=== PATIENT | female | born 1980 | race Caucasian/White ===

== ENCOUNTER → 2017-10-12 17:48 | Outpatient (CLI) | payer BC, SELFPAY | PROVIDERS: Visit Provider Obstetrics & Gynecology | DX: O09.90 Supervision of high risk pregnancy, unspecified, unspecified trimester (principal); O09.529 Supervision of elderly multigravida, unspecified trimester; Z3A.00 Weeks of gestation of pregnancy not specified | CPT/HCPCS: 87086; 87088 ==

== ENCOUNTER → 2017-10-25 16:11 | Outpatient (CLI) | payer BC, SELFPAY ==
[2017-10-25 17:29] LABS: Absolute Lymphocyte Count 3.09 X10^3/ul (0.83-4.51); Absolute Neutrophil Count 7.9 X10^3/uL (2.0-7.7); Basophil# 0.01 X10^3/uL; Basophil% 0.1 % (0-1); Eosinophil# 0.11 X10^3/uL; Eosinophils% 0.9 % (0-5); Hematocrit 37.7 % (37-47); Hemoglobin 12.5 g/dl (12.0-15.0); Lymphocyte # 3.09 X10^3/ul (4.0); Lymphocyte % 26.6 % (19-41); Mean Corp Hgb Conc 33.2 g/gl (32-36); Mean Corpuscular Hgb 28.8 pg (27.0-32.0); Mean Corpuscular Volume 86.9 fL (81-99); Monocyte# 0.47 X10^3/uL; Neutrophil # 7.91 X10^3/uL (2.7-7.7); Neutrophil % 68.2 % (47-70); Platelet Count 276 K/mm3 (150-450); RBC Distribution Width CV 12.8 % (11.6-14.6); Red Blood Count 4.34 M/mm3 (4.2-5.4); White Blood Count 11.6 K/mm3 (4.4-11.0)
[2017-10-25 17:33] LABS: POSITIVE COUNT NO; POSITIVE DIFFERENTIAL NO; POSITIVE MORPHOLOGY NO
[2017-10-26 04:36] LABS: Rapid Plasmin Reagin (RPR) NONREACTIVE (NONREACTIVE)
[2017-10-26 12:23] LABS: HIV - WCH Non-Reactive (Nonreactive); Rubella IgG 93.6 IU/mL
[2017-10-27 09:25] LABS: HEPATITIS B SURFACE AG Negative (Negative); HSV 1 IgG < 0.91 index (0.00-0.90); HSV 2 IgG 7.24 index (0.00-0.90)
[2017-10-30 08:54] LABS: Anti-Cardiolipin Ab, IgA, Qn < 9 APL U/mL (0-11); Anti-Cardiolipin Ab, IgG, Qn < 9 GPL U/mL (0-14); Anti-Cardiolipin Ab, IgM, Qn 17 MPL U/mL (0-12)
== END ==
PROVIDERS: Visit Provider Obstetrics & Gynecology
DX: O09.90 Supervision of high risk pregnancy, unspecified, unspecified trimester (principal); Z3A.00 Weeks of gestation of pregnancy not specified
CPT/HCPCS: 36415; 85025; 86147; 86592; 86695; 86696; 86703; 86762; 86850; 86900; 87340; 87491; 87591

== ENCOUNTER → 2017-10-25 18:02 | Outpatient (CLI) | payer BC, SELFPAY ==
[2017-10-25 20:59] LABS: Chlamydia Trachomatis by PCR Negative (Negative); Neisserai gonorrhoeae by PCR Negative (Negative); Probe Check PASS; Sample Adequacy Control PASS; Specimen Processing Control PASS
== END ==
PROVIDERS: Visit Provider Obstetrics & Gynecology
DX: O09.90 Supervision of high risk pregnancy, unspecified, unspecified trimester (principal); Z3A.00 Weeks of gestation of pregnancy not specified
CPT/HCPCS: 87491; 87591

== ENCOUNTER → 2017-11-19 10:05 | Outpatient (CLI) | payer BC, SELFPAY ==
[2017-11-21 11:35] LABS: Anti-Cardiolipin Ab, IgA, Qn < 9 APL U/mL (0-11); Anti-Cardiolipin Ab, IgG, Qn < 9 GPL U/mL (0-14); Anti-Cardiolipin Ab, IgM, Qn 17 MPL U/mL (0-12)
== END ==
DX: Z86.718 Personal history of other venous thrombosis and embolism (principal)
CPT/HCPCS: 86147

== ENCOUNTER → 2017-11-26 09:58 | Outpatient (CLI) | payer BC, SELFPAY | PROVIDERS: Visit Provider Obstetrics & Gynecology | DX: Z36.9 Encounter for antenatal screening, unspecified (principal) ==

== ENCOUNTER → 2018-02-04 11:51 | Outpatient (CLI) | payer BC, SELFPAY ==
[2018-02-04 12:55] LABS: ROM Internal Control Test YES-OK TO RESULT pt. (Internal QC); ROM Patient Test Negative (Negative)
== END ==
PROVIDERS: Referring Provider Nurse Practitioner Women's Health; Visit Provider Nurse Practitioner Women's Health
DX: N89.8 Other specified noninflammatory disorders of vagina (principal)
CPT/HCPCS: 84112

== ENCOUNTER → 2018-02-19 10:51 | Outpatient (CLI) | payer BC, SELFPAY ==
[2018-02-19 10:03] VITALS: BMI 29.2
[2018-02-19 11:26] LABS: Absolute Lymphocyte Count 2.01 X10^3/ul (0.83-4.51); Absolute Neutrophil Count 7.3 X10^3/uL (2.0-7.7); Basophil# 0.02 X10^3/uL; Basophil% 0.2 % (0-1); Eosinophil# 0.07 X10^3/uL; Eosinophils% 0.7 % (0-5); Hematocrit 32.7 % (37-47); Hemoglobin 10.8 g/dl (12.0-15.0); Lymphocyte # 2.01 X10^3/ul (4.0); Lymphocyte % 20.3 % (19-41); Mean Corpuscular Hgb 29.7 pg (27.0-32.0); Mean Corpuscular Volume 89.8 fL (81-99); Mean Platelet Vol. 10.2 fl (6.2-12.0); Monocyte# 0.45 X10^3/uL; Monocyte% 4.6 % (0-10); Neutrophil # 7.28 X10^3/uL (2.7-7.7); Neutrophil % 73.6 % (47-70); Platelet Count 226 K/mm3 (150-450); RBC Distribution Width CV 13.2 % (11.6-14.6); RBC Distribution Width SD 42.3 fl (35.1-43.9); Red Blood Count 3.64 M/mm3 (4.2-5.4); White Blood Count 9.9 K/mm3 (4.4-11.0)
[2018-02-19 11:27] LABS: POSITIVE COUNT NO; POSITIVE DIFFERENTIAL NO; POSITIVE MORPHOLOGY NO
[2018-02-19 11:54] LABS: Glucose Challenge Gest 1H 50g 126 mg/dL (70-140)
== END ==
LOC: LAB 10:54
PROVIDERS: Referring Provider Obstetrics & Gynecology; Visit Provider Obstetrics & Gynecology
DX: O09.90 Supervision of high risk pregnancy, unspecified, unspecified trimester (principal); Z3A.00 Weeks of gestation of pregnancy not specified
CPT/HCPCS: 36415; 82950; 85025; 86850; 86900

== ENCOUNTER 2018-03-31 17:00 | Outpatient (CLI) | payer BC, SELFPAY ==
[2018-03-28 15:28] VITALS: BMI 29.2
[2018-03-31 17:11] VITALS: BMI 30.2
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
== END 2018-03-31 18:00 | disposition home or self-care (01) ==
LOC: WPOUT 17:06 → WP 17:07
PROVIDERS: Visit Provider Obstetrics & Gynecology
DX: O46.90 Antepartum hemorrhage, unspecified, unspecified trimester (principal); Z3A.00 Weeks of gestation of pregnancy not specified; Z86.718 Personal history of other venous thrombosis and embolism
CPT/HCPCS: 59025; 59050; 99218; G0378

== ENCOUNTER → 2018-04-05 10:43 | Outpatient (CLI) | payer BC, SELFPAY ==
[2018-04-05 10:14] VITALS: BMI 30.2
[2018-04-05 11:08] LABS: Absolute Lymphocyte Count 1.88 X10^3/ul (0.83-4.51); Absolute Neutrophil Count 8.2 X10^3/uL (2.0-7.7); Basophil# 0.01 X10^3/uL; Basophil% 0.1 % (0-1); Eosinophil# 0.12 X10^3/uL; Eosinophils% 1.1 % (0-5); Hematocrit 33.5 % (37-47); Hemoglobin 11.1 g/dl (12.0-15.0); Lymphocyte # 1.88 X10^3/ul (4.0); Lymphocyte % 17.1 % (19-41); Mean Corp Hgb Conc 33.1 g/gl (32-36); Mean Corpuscular Hgb 29.8 pg (27.0-32.0); Mean Corpuscular Volume 89.8 fL (81-99); Monocyte# 0.68 X10^3/uL; Monocyte% 6.2 % (0-10); Neutrophil # 8.19 X10^3/uL (2.7-7.7); Neutrophil % 74.7 % (47-70); POSITIVE COUNT NO; POSITIVE DIFFERENTIAL NO; POSITIVE MORPHOLOGY NO; Platelet Count 213 K/mm3 (150-450); RBC Distribution Width CV 14.1 % (11.6-14.6); RBC Distribution Width SD 45.1 fl (35.1-43.9); Red Blood Count 3.73 M/mm3 (4.2-5.4)
[2018-04-05 11:17] LABS: Fibrinogen 564 mg/dl (203-444)
== END ==
LOC: LAB 10:46
PROVIDERS: Referring Provider Obstetrics & Gynecology; Visit Provider Obstetrics & Gynecology
DX: N93.9 Abnormal uterine and vaginal bleeding, unspecified (principal)
CPT/HCPCS: 36415; 85025; 85384

== ENCOUNTER → 2018-04-17 15:00 | Outpatient (CLI) | payer BC, SELFPAY ==
[2018-04-17 10:07] VITALS: BMI 30.2
--- OUTSIDE RECORDS SUMMARY | 2018-06-22 14:24 | XMS RPT_ITS ---
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 with history of infertility, antepart*INVALID FOR* More... Family history of cystic fibrosis [Z83.49] INVALID FOR* More... History of depression [Z86.59] INVALID FOR* More... Obesity in [O99.210] INVALID FOR* More... Exposure to genital herpes [Z20.2] INVALID FOR* More... History of DVT (deep vein thrombosis) [Z86.718] INVALID FOR* More... Other instructions from your clinician: SEQUENTIAL SCREENINGS The [facility] offers sequential screenings for women who are interested in screenings for chromosomal abnormalities and certain defects during a . The sequential screen combines ultrasound and blood tests to determine the risk of chromosomal abnormalities, including Down's Syndrome (Trisomy 21) and Trisomy 18, as well as open neural tube defects including spina bifida. Ultrasound examination is performed between 11 weeks and 13 weeks gestational age. Blood tests are drawn after the ultrasound and again later in the between 15 and 21 weeks gestational age. Please let your physician know if you are interested in this testing. It will require an appointment with our special equipment technician. This is not an ultrasound performed by a physician in our office during a routine visit. SIGNS AND SYMPTOMS OF LABOR 1. Contractions every 10 minutes or more often 2. Clear, pink, or brownish fluid (water) leaking from vagina 3. Feeling that baby is pushing down, pressure 4. Low, dull backache 5. Cramps that feel like a period 6. Cramps with or without diarrhea If you notice any of the above symptoms, contact our office at [phone] and ask to speak with a nurse. After hours, you can call doctors registry at [phone] OR call [facility] at [phone] and ask to have the doctor clinical education coordinator paged. If you consider this an emergency, dial 9-1-1 or go to your nearest emergency department. Cord-Blood Banking Up until recently, the umbilical cord--along with the blood that remained in it after a baby was born and the cord cut--was simply discarded by the hospital. Then, in the late , researchers discovered that cord blood possessed unusual properties that made it useful in the treatment of patients with some cancers and other illnesses. While the actual process of collecting cord blood is straightforward, many parents are not even aware that this option now exists, much less familiar with all the issues involved. The case for saving your baby's cord blood The blood running back and forth between your baby and the placenta is full of immature cells called stem cells. Unlike embryonic stem cells, which have the ability to develop into any type of body cell, cord-blood stem cells already are locked into a certain, vital function: making all the different components of the blood, such as platelets, white blood cells, and red blood cells-serving, in effect, like bone marrow. When transfused into a patient whose own blood cells have faulty genetic coding or have been destroyed by chemotherapy or other cancer treatments, the cord-blood cells can implant themselves in the bone marrow and generate legions of new, healthy cells. These days, cord-blood transplants most commonly are used in cancer patients when a donor can't be found for a bone-marrow transplant. The treatment is particularly effective in young patients- the [facility] Cord Blood Bank reports a 70 percent success rate in children, but only 20 to 40 percent in adults. Researchers envision improving those odds and see many future applications as well, such as curing sickle cell disease and other blood-related genetic illnesses. So there is a possibility that your child, or someone else, may need these super-healthy and versatile cells one day. The drawbacks Aside from not knowing about this medical option, the main reason most people do not save their baby's stem cells is cost. In a private blood bank, the initial costs run from $275 to $1,500. Most also charge a yearly storage fee of $50 to $95. The advantage of using a private bank is that your sample is saved for only you to use. An alternative to private banking Public cord-blood monson are an alternative. These cost no money to use, but your sample is not specifically saved for you. Another person with a more immediate need may use it. If the time should come that you need stem cells, yours may still be available, or you may use donations from other people without charge. You also can direct your sample to go to a relative with an immediate need if the blood type matches. Anyone else needing to use stem cells from a public bank who has not been a donor must pay for it, sometimes tens of thousands of dollars. Will my family benefit from saving stem cells? Right now, situations in which stem cells would be helpful are quite rare. As mentioned earlier, stem-cell transplants are most commonly used for rare genetic conditions and for some types of cancer, including leukemia and lymphoma. And even with these present uses, many questions remain. In cancer treatment, for example, some researchers are concerned about the wisdom of transplanting back into the child the same cells that already showed a propensity to become malignant. Doctors also aren't sure if the number of cells taken at the time of would be enough to treat a full-grown 16-year-old. It is also not completely clear how active the cells would be after years of being stored. The treatment is so new and rare, we just don't have the data yet to resolve these important issues. What do the experts say? The [place] [employer] encourages philanthropic blood banking in public monson, but only for families with a current or potential need. Blood-bank proponents encourage any kind of banking, pointing out that research is getting closer and closer to many diverse, live-saving applications. How do I decide? Each family must weigh the pros and cons for themselves. Some families say that any cost is worth their peace of mind. Others say that in the face of uncertainty about the effectiveness of the treatment, they will use their resources elsewhere. Some choose the middle ground of donating publicly, knowing that their sample might benefit another family, if not themselves. For more information, ask your doctor or nurse, and be sure to check out our article on the technical aspects of cord-blood banking. Technical Aspects of Cord-Blood Banking If you are interested in storing your baby's umbilical- cord blood because of its possible use in emerging medical treatments, you must make arrangements with a blood bank before your child is born. The collection procedure is quite simple: After delivery of the baby, the umbilical cord is clamped and cut in the usual way. The blood that remains in the umbilical-cord vessels is then collected in sterile containers. The blood may be removed from the cord with a large needle or allowed to flow freely, depending on the company's collection system. The containers may look like large test tubes or like the plastic bags used in a blood bank. It does not cause the mother or the baby any pain to collect the blood, and no blood is taken that the baby needs at the moment. The nurse, laborer stores, or physician will then label the samples, check them over with you, and package them for a special pickup arranged with a commercial carrier. When the blood arrives at the blood- bank facility, it is processed and the parents are notified. It is then kept in an advanced storage system for years. How do I know that my sample is safe? Power outages and bankruptcies potentially could threaten any organization, but so far none have been reported. It is to be hoped that the scientists in these monson would arrange for safe transfer to another facility if the need arose. YOU MUST MAKE ARRANGEMENTS AHEAD OF TIME! Public cord-blood monson--DONATION: [employer] [phone] [facility] Placental Blood Program, [facility] Umbilical Cord Blood Bank, Private cord-blood monson--SAVING FOR YOUR OWN USE: [employer], (I think this is the least expensive) [employer] [phone] [employer], (943) [employer] [place] Cord Blood [facility], [phone] 700-CORD Cells, [phone] [place] [facility], Cord Blood Registry, (905) CORDBLSoutheast Health Medical Centerco, An Internet search may provide you with additional listings. Disposition: Return in about 4 weeks (around 10/01/2017) for New OB with Dr Duarte. Follow-up and Disposition History Recorded Encounter Status:Closed by MELISSA FARIAS RN on 09/06/17 ALLERGIES ALLERGIES DATE TYPE / NAME / CODE REACTION SEVERITY SOURCE CODE 04/24/2018 Drug Penicillins/[id number] Unknown Unknown Josh Allergy/41 76(RXNORM) [facility] [id number]([facility]) Repository 04/24/2018 Drug cephalexin/[id number] Unknown Unknown Josh Allergy/41 6(RXNORM) [facility] 9085846( Hospital OMED CT) Repository 11/19/2017 Drug CEPHALOSPORINS [facility]195 [facility] [address](SNOM Repository ED CT) 11/19/2017 Drug PENICILLINS Had as a child [facility] Class/4195 and was told Hospital [address]47(SNOM to not take Repository ED CT) per her mother 06/19/2002 DRUG CEPHALEXIN SWELLING [facility] INGREDI/[address] [place] 7411176(SN Repository OMED CT) 06/19/2002 Drug PENICILLINS SWELLING [facility] Class/4195 [address] [place] [address](SNOM Repository ED CT) ENCOUNTERS ENCOUNTERS ADMIT/DISCHARGE ACCOUNT ADMITTING ENCOUNTER LOCATION SOURCE NUMBER CLASS 04/25/2018 [id number] Ambulatory Building:[facility] Repository 04/24/2018/04/24/19 [id number] Ambulatory BMSBuilding:Macy Moreno [facility] Repository 04/18/2018 [id number] Ambulatory Building:[facility] Repository 04/17/2018 [id number] Ambulatory [facility] ing:LABSPEC Repository 04/17/2018/04/17/19 [id number] Ambulatory BMSBuilding:Macy Moreno [facility] Repository 04/12/2018/04/12/19 [id number] Ambulatory BMSBuilding:Macy Moreno 19 [facility] Repository 04/11/2018/04/11/19 [id number] Ambulatory Building:[address] Repository 04/05/2018 [id number] Ambulatory [facility] ing:LAB Repository 04/05/2018/04/05/19 [id number] Ambulatory BMSBuilding:Macy Moreno [facility] Repository 04/04/2018 [id number] Ambulatory Building:[facility] Repository 04/01/2018 [id number] Ambulatory BMSBuilding:Macy Moreno MS.CF.[facility] Repository 03/31/2018/03/31/20 [id number] Ambulatory [address] ing:WPOUTRoom Repository : WP013 03/28/2018/03/28/20 [id number] Ambulatory BMSBuilding:B [place] [facility] Repository 03/28/2018 [id number] Ambulatory Building:[facility] Repository 03/21/2018 [id number] Ambulatory Building:[facility] Repository 03/19/2018/03/19/20 [id number] Ambulatory BMSBuilding:B Josh [facility] Repository 03/05/2018/03/05/20 [id number] Ambulatory BMSBuilding:B Josh [facility] Repository 02/19/2018 [id number] [facility]:LAB Repository 02/19/2018/02/20/20 [id number] Ambulatory BMSBuilding:B Josh [facility] Repository 02/04/2018 [id number] Ambulatory [facility] ing:LABSPEC Repository 02/04/2018/02/05/20 [id number] Ambulatory BMSBuilding:B Josh [facility] Repository 01/22/2018/01/23/20 [id number] Ambulatory BMSBuilding:B Josh [facility] Repository 01/07/2018 [id number] Ambulatory Building:[facility] Repository 12/25/2017/12/26/19 [id number] Ambulatory BMSBuilding:B Josh 18 [facility] Repository 12/13/2017/12/14/19 [id number] Ambulatory Building:[address] Repository 11/26/2017 [id number] [facility]:LAB Repository 11/26/2017/11/27/19 [id number] Ambulatory BMSBuilding:B Josh [facility] Repository 11/19/2017 [id number] [facility] ing:LAB Repository 11/19/2017/11/20/19 [id number] Ambulatory Building:[address] Repository 10/25/2017 [id number] Ambulatory [facility] ing:LABSPEC Repository 10/25/2017 [id number] Ambulatory [facility] ing:LAB Repository 10/25/2017/10/26/19 [id number] Ambulatory BMSBuilding:B [place] [facility] Repository 10/12/2017 [id number] Ambulatory [facility] ing:LABSPEC Repository 10/12/2017/10/13/19 [id number] Ambulatory BMSBuilding:B [place] 18 [facility] Repository 09/24/2017/09/25/19 [id number] Ambulatory BMSBuilding:B Josh [facility] Repository 09/19/2017/09/20/19 [id number] Ambulatory [address] Repository 09/17/2017/09/18/19 [id number] Ambulatory [address] Repository 09/17/2017/09/19/19 [id number] Ambulatory [address] Repository 09/08/2017/09/09/19 [id number] Ambulatory [address] Repository 09/06/2017 [id number] Ambulatory [facility] Repository 09/06/2017/09/12/19 [id number] Ambulatory [address] Repository PAYERS PAYERS ENCOUNTER GUARANTOR PAYER SUBSCRIBER SOURCE 04/25/2018 SUMMER YATESDOB: Primary JOHNNY Villegas [id number] Insurance:ANTHEMPolic SINESDOB: [facility] y Number: [id number] [place], [place] [id number] [place] Repository 77062Ovf: (330) Date: [place], [place] [phone] () [phone] 04/24/2018 SUMMER F Primary YESSENIA Morales SINESDOB: [place] [id number] Insurance:ANTHEMPolic [id number] y Number: [place], [place] [id number] Repository 18745Jkz: (330) Date:6376-63-45MU [phone] (HP) [address] [place] [address]OW: 04/24/2018 Secondary NOT GIVENUNK [place] Insurance:SELF PAY [facility] Number: Effective Repository Date:2018-04-24 04/18/2018 SUMMER YATESDOB: Primary JOHNNY Villegas [id number] Insurance:ANTHEMPolic SINESDOB: [facility] [place] y Number: [id number] [place], [place] [id number] [place] Repository 06259Pkz: (330) Date: [place], [place] [phone] () [phone] 04/17/2018 SUMMER F Primary YESSENIA D SINESDOB: [place] [id number] Insurance:ANTHEMPolic [id number] [facility] y Number: [place], [place] [id number] Repository 36603Szo: (330) Date:8884-37-88SV [phone] () [place], [place] [address]SC: 04/17/2018 Secondary NOT GIVENUNK [place] Insurance:SELF PAY [facility] Number: Effective Repository Date:2018-04-17 04/17/2018 SUMMER F Primary YESSENIA D SINESDOB: [place] [id number] Insurance:ANTHEMPolic [id number] [facility] y Number: [place], [place] [id number] Repository 448[address]Bov: (330) Date:3481-93-21XA [phone] () [address] [place] [address] [place] [address]SV: 04/17/2018 Secondary NOT GIVENUNK [place] Insurance:SELF PAY [facility] Number: Effective Repository Date:2018-03-05 04/12/2018 SUMMER F Primary YESSENIA D SINESDOB: [place] [id number] Insurance:ANTHEMPolic [id number] [facility] y Number: [place] [id number] Repository 50456Yif: (330) Date:0570-07-89XC [phone] () [address]FK[place], [place] [address]FD: 04/12/2018 Secondary NOT GIVENUNK [place] Insurance:SELF PAY [facility] Number: Effective Repository Date:2018-04-12 04/11/2018 SUMMER YATESDOB: Primary JOHNNY Villegas Insurance:ANTHEMPolic SINESDOB: [facility] [place] y Number: [id number] [place], [place] [id number] [facility] Repository 49[address]Csy: (330) Date: [place], [place] [phone] (HP) [phone] 04/05/2018 SUMMER F Primary YESSENIA D SINESDOB: [place] [id number] Insurance:ANTHEMPolic [id number] [facility] y Number: [place], [place] [id number] Repository 17[address]Lqf: (330) Date:4585-99-86YC [phone] () 202[address]FKNACI [place] [address]NW: 04/05/2018 Secondary NOT GIVENUNK [place] Insurance:SELF PAY [facility]: Effective Repository Date:2018-04-05 04/05/2018 SUMMER F Primary YESSENIA D SINESDOB: Josh [id number] Insurance:ANTHEMPolic [id number] [facility] y Number: [place], [place] [id number] Repository 606[address]Nph: (330) Date:2210-38-28FB [phone] () [id number] [place] [address]IC: 04/05/2018 Secondary NOT GIVENUNK [place] Insurance:SELF PAY [facility] Number: Effective Repository Date:2018-03-05 04/04/2018 SUMMER YATESDOB: Primary JOHNNY Villegas Insurance:ANTHEMPolic SINESDOB: [facility] [place] y Number: [id number] [place], [place] [id number] [facility] Repository 16038Gvn: (330) Date: [place], [place] [phone] () [phone] 04/01/2018 SUMMER F Primary NOT GIVENUNK [place] [id number] Insurance:SELF PAY [place] Number: Effective Repository 74[address]Dta: (330) Date:2018-04-01 [phone] () 03/31/2018 SUMMER F Primary YESSENIA D SINESDOB: [place] [id number] Insurance:ANTHEMPolic [id number] [facility] y Number: [place], [place] [id number] Repository 564[address]Mma: (330) Date:3833-21-47RN [phone] () [address] [place] [address]TX: 03/31/2018 Secondary NOT GIVENUNK [place] Insurance:SELF PAY [facility] Number: Effective Repository Date:2018-03-31 03/28/2018 SUMMER F Primary YESSENIA D SINESDOB: Josh [id number] Insurance:ANTHEMPolic [id number] [facility] y Number: [place] [id number] Repository 514[address]Tmj: (330) Date:2590-74-02YQ [phone] () [id number] [place] [address]JE: 03/28/2018 Secondary NOT GIVENUNK [place] Insurance:SELF PAY [facility] Number: Effective Repository Date:2018-03-28 03/28/2018 SUMMER YATESDOB: Primary JOHNNY Vil[place] Insurance:ANTHEMPolic SINESDOB: [facility] y Number: [id number] [place], [place] [id number] [place] Repository 30307Chl: (330) Date: [place], [place] [phone] () [phone] 03/21/2018 SUMMER YATESDOB: Primary JOHNNY Morales [place] Insurance:ANTHEMPolic SINESDOB: [facility] y Number: [id number] [place], [place] [id number] [place] Repository 646[address]Pjj: (330) Date: [place], [place] [phone] () [phone] 03/19/2018 SUMMER F Primary YESSENIA D SINESDOB: Josh [id number] Insurance:ANTHEMPolic [id number] [facility] [place] y Number: [place], [place] [id number] Repository [address]Ctl: (330) Date:0558-25-73JG [phone] () [id number], [place] [address]UQ: 03/19/2018 Secondary NOT GIVENUNK [place] Insurance:SELF PAY Community [facility] Number: Effective Repository Date:2018-03-05 03/05/2018 SUMMER F Primary YESSENIA D SINESDOB: [place] [id number] Insurance:ANTHEMPolic [id number] [facility] Number: [place] [id number] Repository [address]Fxp: (330) Date:5014-81-46KW [phone] () 197[address]PRLKYWZ, [place] [address]CD: 03/05/2018 Secondary NOT GIVENUNK [place] Insurance:SELF PAY Community [facility] Number: Effective Repository Date:2018-03-05 02/19/2018 SUMMER F Primary YESSENIA D SINESDOB: [place] [id number] Insurance:ANTHEMPolic [id number] [facility] y Number: [place] [id number] Repository [address]Cwp: (330) Date:5015-41-55ED [phone] () 202199MHXLZPC, [place] [address]LF: 02/19/2018 Secondary NOT GIVENUNK [place] Insurance:SELF PAY [facility] Number: Effective Repository Date:2018-02-19 02/19/2018 SUMMER F Primary YESSENIA SINESDOB: Josh [id number] Insurance:ANTHEMPolic [id number] [facility] y Number: [place] [id number] Repository [address]13[address]Cnk: (330) Date:1183-46-83OJ [phone] () [id number] [place] [address]OA: 02/19/2018 Secondary NOT GIVENUNK [place] Insurance:SELF PAY [facility] Number: Effective Repository Date:2018-02-19 02/04/2018 SUMMER F Primary YESSENIA SINESDOB: [place] [id number] Insurance:ANTHEMPolic [id number] [facility] y Number: [place] [id number] Repository 33[address]Tfl: (330) Date:9514-25-62SK [phone] () [address] [place] [address]EQ: 02/04/2018 Secondary NOT GIVENUNK [place] Insurance:SELF PAY [facility] Number: Effective Repository Date:2018-02-04 02/04/2018 SUMMER F Primary YESSENIA SINESDOB: Josh [id number] Insurance:ANTHEMPolic [id number] [facility] y Number: [place] [id number] Repository 287[address]Jxr: (330) Date:9281-38-72RC [phone] () [id number] [place] [address]VJ: 02/04/2018 Secondary NOT GIVENUNK [place] Insurance:SELF PAY [facility]: Effective Repository Date:2018-02-04 01/22/2018 SUMMER F Primary YESSENIA SINESDOB: [place] [id number] Insurance:ANTHEMPolic [id number] [facility] y Number: [place] [id number] Repository [address]33[address]Kqy: (330) Date:3395-00-16YB [phone] () 236943GAIDLDZ, [place] [address]GA: 01/22/2018 Secondary NOT GIVENUNK [place] Insurance:SELF PAY [facility] Number: Effective Repository Date:2018-01-22 01/07/2018 SUMMER YATESDOB: Primary JOHNNY Villegas [id number] Insurance:ANTHEMPolic SINESDOB: [facility] y Number: [id number] [place], [place] [id number] [place] Repository [address]14[address]Qib: (330) Date: [place], [place] [phone] (HP) [phone] 12/25/2017 SUMMER F Primary YESSENIA SINESDOB: [place] [id number] Insurance:ANTHEMPolic [id number] [facility] [place] y Number: [place] [id number] Repository 326[address]Bus: (330) Date:9789-23-00GC [phone] () [id number], [place] [address]DN: 12/25/2017 Secondary NOT GIVENUNK [place] Insurance:SELF PAY [facility] Number: Effective Repository Date:2017-12-25 12/13/2017 SUMMER YATESDOB: Primary JOHNNY Villegas [id number] Insurance:ANTHEMPolic SINESDOB: [facility] y Number: [id number] [place], [place] [id number] [facility] 00995Jze: (330) Date: [place], [place] [phone] (HP) [phone] 11/26/2017 SUMMER F Primary YESSENIA SINESDOB: Josh [id number] Insurance:ANTHEMPolic [id number] [facility] y Number: [place] [id number] Repository 75[address]Neo: (330) Date:3266-02-31YU [phone] () CAIN LOPEZ [address]RJ: 11/26/2017 Secondary NOT GIVENUNK [place] Insurance:SELF PAY Community [facility] Number: Effective Repository Date:2017-11-26 11/26/2017 SUMMER F Primary YESSENIA SINESDOB: [place] [id number] Insurance:ANTHEMPolic [id number] [facility] y Number: [place] [id number] Repository 726[address]Wbu: (330) Date:0465-51-49SL [phone] () CAIN LOPEZ [address]VH: 11/26/2017 Secondary NOT GIVENUNK [place] Insurance:SELF PAY Community [facility] Number: Effective Repository Date:2017-11-26 11/19/2017 SUMMER F Primary YESSENIA SINESDOB: Josh [id number] Insurance:ANTHEMPolic [id number] [facility] y Number: [place] [id number] Repository 29[address]Qae: (330) Date:3153-40-64XR [phone] () 136757EIGHFIM, [place] [address]VM: 11/19/2017 Secondary NOT GIVENUNK [place] Insurance:SELF PAY [facility] Number: Effective Repository Date:2017-11-19 11/19/2017summer YATESDOB: Primary JOHNNY Villegas [id number] Insurance:ANTHEMPolic SINESDOB: [facility] y Number: [id number] [place], [place] [id number] [place] Repository [address]37[address]Yfy: (330) Date: [place], [place] [phone] () [address] 10/25/2017 SUMMER F Primary YESSENIA SINESDOB: [place] [id number] Insurance:ANTHEMPolic [id number] [facility] y Number: [place] [id number] Repository [address]Tyw: (330) Date:1359-78-30EA [phone] () 427388XYWYQEA, [place] [address]QB: 10/25/2017 Secondary NOT GIVENUNK [place] Insurance:SELF PAY Community [facility] Number: Effective Repository Date:2017-10-25 10/25/2017 SUMMER F Primary YESSENIA SINESDOB: [place] [id number] Insurance:ANTHEMPolic [id number] [facility] y Number: [place] [id number] Repository [address]12[address]Elh: (330) Date:7351-61-62ZC [phone] () 316835SSBUZQX, [place] [address]KQ: 10/25/2017 Secondary NOT GIVENUNK [place] Insurance:SELF PAY Community [facility] Number: Effective Repository Date:2017-10-25 10/25/2017 SUMMER F Primary YESSENIA SINESDOB: [place] [id number] Insurance:ANTHEMPolic [id number] [facility] [place] y Number: [place] [id number] Repository 93297Zdq: (330) Date:9274-95-35TU [phone] () [id number], [place] [address]NY: 10/25/2017 Secondary NOT GIVENUNK [place] Insurance:SELF PAY Community [facility] Number: Effective Repository Date:2017-10-25 10/12/2017 SUMMER F Primary YESSENIA SINESDOB: [place] [id number] Insurance:ANTHEMPolic [id number] [facility] Number: [place] [id number] Repository [address]11[address]Bte: (330) Date:9025-39-42EP [phone] () [id number], [place] [address]PY: 10/12/2017 Secondary NOT GIVENUNK [place] Insurance:SELF PAY Community [facility] Number: Effective Repository Date:2017-10-12 10/12/2017 SUMMER F Primary YESSENIA SINESDOB: [place] [id number] Insurance:ANTHEMPolic [id number] [facility] Number: [place] [id number] Repository [address]Djf: (330) Date:4389-86-13LN [phone] () [address] [place] [address] [place] [address]ZI: 10/12/2017 Secondary NOT GIVENUNK [place] Insurance:SELF PAY Community [facility] Number: Effective Repository Date:2017-10-12 09/24/2017 SUMMER F Primary YESSENIA SINESDOB: [place] [id number] Insurance:ANTHEMPolic [id number] [facility] y Number: [place] [id number] Repository [address]Jya: (330) Date:2679-06-28IN [phone] () [id number], [place] [address]XS: 09/24/2017 Secondary NOT GIVENUNK [place] Insurance:SELF PAY [facility] Number: Effective Repository Date:2017-09-24
== END ==
LOC: LABSPEC 15:03
PROVIDERS: Referring Provider Obstetrics & Gynecology; Visit Provider Obstetrics & Gynecology
DX: O09.90 Supervision of high risk pregnancy, unspecified, unspecified trimester (principal); Z3A.00 Weeks of gestation of pregnancy not specified
CPT/HCPCS: 87081

== ENCOUNTER 2018-05-13 07:15 | Inpatient (IN) | payer BC, SELFPAY ==
[2018-05-08 08:56] VITALS: BMI 31.6
[2018-05-13 08:23] LABS: Hematocrit 33.6 % (37-47); Hemoglobin 10.7 g/dl (12.0-15.0); Mean Corp Hgb Conc 31.8 g/gl (32-36); Mean Corpuscular Hgb 28.7 pg (27.0-32.0); Mean Corpuscular Volume 90.1 fL (81-99); Mean Platelet Vol. 11.3 fl (6.2-12.0); Platelet Count 209 K/mm3 (150-450); RBC Distribution Width CV 14.1 % (11.6-14.6); RBC Distribution Width SD 45.2 fl (35.1-43.9); Red Blood Count 3.73 M/mm3 (4.2-5.4); White Blood Count 10.3 K/mm3 (4.4-11.0)
[2018-05-13 08:25] LABS: Scan Indicated on CBC? Y/N NO
[2018-05-13 08:42] VITALS: BMI 32.3
[2018-05-13 08:54] LABS: Partial Thromboplast Time 29.2 Seconds (24.1-36.2)
[2018-05-13] MEDS: Oxytocin 30 units/NS 500 ml 30 UNITS/500 ML IV.SOLN IV (09:11)
[2018-05-13] MEDS: Lactated Ringers 1,000 ML 50 ML IV (09:11)
[2018-05-13] MEDS: 0.9% Normal Saline 100 ML IV.SOLN. INTRA-UTER (10:05)
[2018-05-13] MEDS: Oxytocin 30 units/NS 500 ml 30 UNITS/500 ML IV.SOLN 334 UNITS IV (17:51)
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
--- NOTE | 2018-05-13 18:12 | PCM.OB.VAG ---
- Problem List (1) Anemia affecting Status: Acute Qualifiers: Comment: Recommend to start Iron (2) Status: Acute Qualifiers: Comment: NIPT screening negative. AFP negative. anatomy US with MFM ordered. ? echogenic bowel normal NIPT, no further follow up needed. (3) Antiphospholipid antibody syndrome complicating Status: Acute Comment: h/o dvt and APL antibody positive- Lovenox in and weeks 6 pp. (4) Herpes genitalis in women Status: Acute Comment: plan acyclovir at 36 weeks, past exposure. (5) H/O deep venous thrombosis Status: Acute Comment: MFM consult. thromboprophylaxis in and 6 weeks pp (6) H/O LEEP Status: Acute Comment: check cervical length at anatomy scan (7) AMA (advanced maternal age) multigravida 35+ Status: Acute Qualifiers: Comment: NIPT- Low risk. growth us third trimester (8) Supervision of high-risk Status: Acute Qualifiers: Comment: PRR CATHERINE 05/15/18 girl chanel Willard Parveen Vaginal Delivery Maternal Presentation: Medically Indicated Induction Method of Induction: Pitocin, Rodriguez Bulb Medical Reason for Induction: - - apl syndrome Amniotic Membrane Rupture Type: Artificial Amniotic Fluid Description: Clear Final CATHERINE: 05/15/18 Gestational age: 39 Weeks and 5 Days Date of Procedure: 05/13/18 Pre-Operative Diagnosis: iol Post-Operative Diagnosis: same Surgery/ Procedure Performed: Spontaneous Vaginal Delivery Type of Anesthesia: None Description of Procedure: patient proceeded to complete dilation and delivered spontaneously with the nurse present, no complications or shoulder dystocia. I arrived at 1 minute of life and cord was stil attached, n ovaginal laceration, cord clamped and cut after done pulsing and placenta delivered immediately following intact with a 3 vc. ebl 100 Placental Delivery Description: Spontaneous Placenta Disposition: [facility]
[2018-05-13] MEDS: Oxytocin 30 units/NS 500 ml 30 UNITS/500 ML IV.SOLN 167 UNITS IV (18:21)
[2018-05-14 00:05] VITALS: BP 112/61; PULSE 68; RESP 16; TEMP 37.1
[2018-05-14 04:15] VITALS: BP 112/62; PULSE 75; RESP 16; TEMP 36.6
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
[2018-05-14 09:00] VITALS: BP 117/73; PULSE 76; RESP 18; TEMP 36.8
[2018-05-14] MEDS: Enoxaparin 40 MG/0.4 ML Syringe SC (09:06)
[2018-05-14] MEDS: Senna/Docusate Sodium 1 Tablet PO (09:29)
[2018-05-14 11:38] VITALS: BP 104/53; PULSE 70; RESP 16; TEMP 36.6
[2018-05-14 15:30] VITALS: BP 114/76; PULSE 73; RESP 18; TEMP 36.6
[2018-05-14 19:45] VITALS: BP 98/61; PULSE 81; RESP 16; TEMP 36.8; O2SAT 98
[2018-05-15 01:40] VITALS: BP 98/71; PULSE 64; RESP 16; TEMP 36.6; O2SAT 95
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
--- NOTE | 2018-05-15 08:33 | DCINST_ITS ---
Additional Instructions: If you experience any of the following, contact your healthcare provider. * Bleeding that soaks a pad every hour for 2 hours * Fever 100.4 or higher * Unrelieved incision or abdominal pain * Swelling, redness, discharge or bleeding from your incision or episiotomy site * Your incision begins to separate * Problems urinating (including inability to urinate or burning while urinating). * Visual changes * Severe headache * Flu-like symptoms * Pain or redness in one of both of your breasts * Pain, warmth, tenderness or swelling in your legs, especially the calf area * Frequent nausea and vomiting * Symptoms of depression or anxiety If you experience any of the following, call 911 or go to the nearest Emergency Room. * Chest pain * Problems breathing * Seizure activity * Partial or complete paralysis of a body part, slurred speech, weakness or drooping of the face, or a sudden inability to walk or hold your balance Allergies/Adverse Reactions: Allergies cephalexin Allergy (Verified 05/13/18 08:43) Unknown Penicillins Allergy (Verified 05/13/18 08:43) Unknown Medications to take at Discharge vitamin,calcium,ouqqxmtw-tphm-lkfqn acid tablet 1 tab PO QDAY 09/24/17 ferrous sulfate 325 mg (65 mg iron) tablet 325 mg PO DAILY tab 03/05/18 Aspirin [Aspir 81] 81 mg PO DAILY 03/31/18 Acyclovir 400 mg PO BID 05/13/18 Heparin Sodium,Porcine [Heparin Sodium] 5,000 unit SC Q12H 05/13/18 Primary Care Physician: Care Physician,No Primary [Primary Care Provider] - Test Results: Test results from this visit will be discussed in further detail at your follow- up appointment, if applicable.
--- NOTE | 2018-05-15 08:33 | PCM.DCVAG ---
Additional Instructions: If you experience any of the following, contact your healthcare provider. Bleeding that soaks a pad every hour for 2 hours Fever 100.4 or higher Unrelieved incision or abdominal pain Swelling, redness, discharge or bleeding from your incision or episiotomy site Your incision begins to separate Problems urinating (including inability to urinate or burning while urinating). Visual changes Severe headache Flu-like symptoms Pain or redness in one of both of your breasts Pain, warmth, tenderness or swelling in your legs, especially the calf area Frequent nausea and vomiting Symptoms of depression or anxiety If you experience any of the following, call 911 or go to the nearest Emergency Room. Chest pain Problems breathing Seizure activity Partial or complete paralysis of a body part, slurred speech, weakness or drooping of the face, or a sudden inability to walk or hold your balance Allergies/Adverse Reactions: Allergies cephalexin Allergy (Verified 05/13/18 08:43) Unknown Penicillins Allergy (Verified 05/13/18 08:43) Unknown Medications to take at Discharge vitamin,calcium,svanlbjt-pfwg-iynvn acid tablet 1 tab PO QDAY 09/24/17 ferrous sulfate 325 mg (65 mg iron) tablet 325 mg PO DAILY tab 03/05/18 Aspirin [Aspir 81] 81 mg PO DAILY 03/31/18 Acyclovir 400 mg PO BID 05/13/18 Heparin Sodium,Porcine [Heparin Sodium] 5,000 unit SC Q12H 05/13/18 Primary Care Physician: Care Physician,No Primary [Primary Care Provider] - Test Results: Test results from this visit will be discussed in further detail at your follow-up appointment, if applicable.
[2018-05-15] MEDS: Enoxaparin 40 MG/0.4 ML Syringe SC (10:13)
== END 2018-05-15 12:10 | disposition home or self-care (01) | DRG 806 ==
PROVIDERS: Admitting Provider Obstetrics & Gynecology; Referring Provider Obstetrics & Gynecology; Visit Provider Obstetrics & Gynecology
DX: O99.12 Other diseases of the blood and blood-forming organs and certain disorders involving the immune mechanism complicating childbirth (principal); D68.61 Antiphospholipid syndrome; Z37.0 Single live birth; O98.52 Other viral diseases complicating childbirth; Z3A.39 39 weeks gestation of pregnancy; B00.9 Herpesviral infection, unspecified; Z86.718 Personal history of other venous thrombosis and embolism; Z86.711 Personal history of pulmonary embolism; O99.02 Anemia complicating childbirth; D64.9 Anemia, unspecified; Z87.891 Personal history of nicotine dependence
CPT/HCPCS: 59050; 85027; 85610; 85730; 86850; 86900; 99218; J7120; G0378